=== PATIENT | male | born 1955 | race Caucasian/White ===

== ENCOUNTER 2020-05-22 15:42 | Emergency (ER) | payer OTHER ==
[~2020-05-22] VITALS: Ht 167.6 cm; Wt 70.8 kg
[~2020-05-22 15:42] MED LIST: ASPIRIN 325 PO; CLOP75TA PO; HUM7525 SUBQ; METF500T PO; METO25TA PO; SIMV40TA1 PO; VAS2.5 PO; [UNRECOGNIZED DRUG - CODE] PO
[2020-05-22 15:56] VITALS: BP 143/75
--- NOTE | 2020-05-22 16:26 | NUR ---
TODD De Jesus w/ patient for MSE.
[2020-05-22] MEDS ORDERED: cefTRIAXone 1,000 MG in LIDOCAINE MPF 1% 2.1 ML IM ONE (16:30)
[2020-05-22] MEDS ORDERED: KETOROLAC 30 MG/ML VIAL IM ONE (16:30)
--- NOTE | 2020-05-22 16:33 | NUR ---
pt taken to xray
[2020-05-22] MEDS ORDERED: cefTRIAXone 1,000 MG VIAL ONE (16:35)
[2020-05-22] MEDS ORDERED: LIDOCAINE MPF 1% 5 ML ONE (16:35)
[2020-05-22 17:11] VITALS: BP 143/75
--- NOTE | 2020-05-22 17:11 | NUR ---
Patient discharged with v/s stable. Written and verbal after care instructions given and explained. Patient alert, oriented and verbalized understanding of instructions. Ambulatory with steady gait. All questions addressed prior to discharge. ID band removed. Patient advised to follow up with PMD. Rx of Cephalexin 500mg and Naprosyn 500mg given. Patient educated on indication of medication including possible reaction and side effects. Opportunity to ask questions provided and answered.
== END 2020-05-22 17:11 | disposition home or self-care (01) ==
LOC: MED 15:42
DX: L03.115 Cellulitis of right lower limb (principal); E11.9 Type 2 diabetes mellitus without complications; I10 Essential (primary) hypertension; Z98.890 Other specified postprocedural states; Z79.4 Long term (current) use of insulin; Z79.01 Long term (current) use of anticoagulants; Z79.82 Long term (current) use of aspirin; Z79.899 Other long term (current) drug therapy
CPT/HCPCS: 73630; 96372; 99284; J0696; J1885; J2001